=== PATIENT | female | born 1955 | race Caucasian/White ===

== ENCOUNTER 2020-04-17 17:19 | Inpatient (IN) | payer MEDICARE, OTHER ==
--- NOTE | 2020-04-17 17:34 | Consultation ---
History of Present Illness Consult date: 04/17/20 Reason for Consult: stroke alert Chief complaint: slurred speech right sided deficits History of present illness: [facility] Date of Service: 04/17/2020 17:28:33 Impression: Rule Out Acute Ischemic Stroke Comments/Sign-Out: 64 yo F with onset of right sided weakness paresthesia and dysarthria yesterday afternoon. It had not resolved today so she came in. Outside tPA window and no suspicion of LVO Mechanism of Stroke: Small Vessel Disease Metrics: Last Known Well: 04/16/2020 12:00:00 [facility] Notification Time: 04/17/2020 17:28:09 Arrival Time: 04/17/2020 17:19:00 Stamp Time: 04/17/2020 17:28:33 Time First Login Attempt: 04/17/2020 17:30:58 Video Start Time: 04/17/2020 17:32:45 Symptoms: right sided weakness paresthesia slurred speech NIHSS Start Assessment Time: 04/17/2020 17:35:45 Patient is not a candidate for tPA. Patient was not deemed candidate for tPA thrombolytics because of Last Well Known Above 4.5 Hours. Video End Time: 04/17/2020 17:41:36 CT head showed no acute hemorrhage or acute core infarct. Clinical Presentation is not Suggestive of Large Vessel Occlusive Disease ED Physician notified of diagnostic impression and management plan on 04/17/2020 17:41:44 Our recommendations are outlined below. Recommendations: Activate Stroke Protocol Admission/Order Set Stroke/Telemetry Floor Neuro Checks Bedside Swallow Eval DVT Prophylaxis IV Fluids, Normal Saline Head of Bed 30 Degrees Euglycemia and Avoid Hyperthermia (PRN Acetaminophen) Antiplatelet Therapy Recommended Initiate Aspirin 81 MG Daily Routine Consultation with Inhouse Neurology for Follow up Care Sign Out: Discussed with Emergency Department Provider History of Present Illness: Patient is a 64 year old Female. Patient was brought by private transportation with symptoms of right sided weakness paresthesia slurred speech who has right arm numbness since yesterday afternoon. Her speech is also slurred. It got worse today. Examination: 1A: Level of Consciousness - Alert; keenly responsive + 0 1B: Ask Month and Age - Both Questions Right + 0 1C: Blink Eyes & Squeeze Hands - Performs Both Tasks + 0 2: Test Horizontal Extraocular Movements - Normal + 0 3: Test Visual Danielle - No Visual Loss + 0 4: Test Facial Palsy (Use Grimace if Obtunded) - Normal symmetry + 0 5A: Test Left Arm Motor Drift - No Drift for 10 Seconds + 0 5B: Test Right Arm Motor Drift - Drift, but doesn't hit bed + 1 6A: Test Left Leg Motor Drift - No Drift for 5 Seconds + 0 6B: Test Right Leg Motor Drift - No Drift for 5 Seconds + 0 7: Test Limb Ataxia (FNF/Heel-Castillo) - No Ataxia + 0 8: Test Sensation - Mild-Moderate Loss: Less Sharp/More Dull + 1 9: Test Language/Aphasia - Normal; No aphasia + 0 10: Test Dysarthria - Mild-Moderate Dysarthria: Slurring but can be understood + 1 11: Test Extinction/Inattention - No abnormality + 0 NIHSS Score: 3 Patient/Family was informed the Neurology Consult would happen via TeleHealth consult by way of interactive audio and video telecommunications and consented to receiving care in this manner. Due to the immediate potential for life-threatening deterioration due to underlying acute neurologic illness, I spent 35 minutes providing critical care. This time includes time for face to face visit via telemedicine, review of medical records, imaging studies and discussion of findings with providers, the patient and/or family. Dr Dayron Hua [facility] Case [id number] Medications and Allergies Allergies Allergy/AdvReac Type Severity Reaction Status Date / Time No Known Allergies Allergy Verified 04/17/20 17:20 Physical Examination - Vital Signs Vital Signs: Vital Signs Temp Pulse Resp BP Pulse Ox 98 F 73 20 214/87 97 04/17/20 17:24 04/17/20 17:24 04/17/20 17:24 04/17/20 17:24 04/17/20 17:24
--- NOTE | 2020-04-17 17:45 | Emergency Department Report ---
HPI - General Chief Complaint: Neuro Symptoms/Deficit Time Seen by Provider: 04/17/20 17:42 - HPI HPI: 64-year-old female presents to the emergency department as a code stroke secondary to slurred speech and right shoulder numbness. The symptoms started yesterday with the slurred speech at first and then the right shoulder numbness later on. The patient thought that she would go to sleep and the symptoms would resolve but she woke up with them and then was encouraged by family to come to the emergency department. Patient also says that she would get dizzy with some mild blurry vision when going up and down the stairs. She has a history of hype rtension for which she takes losartan and does present with extremely elevated blood pressure. She did not take her losartan today. She denies any tobacco or illicit drug use. No recent travel or sick contacts at home. Her primary care physician is Dr. Brewer. ED Past Medical Hx - Past Medical History Hx Hypertension: Yes - Medications Home Medications: Home Medications Medication Instructions Recorded Confirmed Last Taken Type Losartan [Cozaar] 25 mg PO QHS 04/17/20 04/17/20 1 Day Ago History ~04/16/20 ED Review of Systems ROS: Stated complaint: SLURRED SPEECH/RT SHOULDER NUMB Other details as noted in HPI Comment: All other systems reviewed and negative Constitutional: denies: chills, fever Eyes: vision change (blurry vision). denies: eye pain ENT: denies: ear pain, throat pain Respiratory: denies: cough, shortness of breath Cardiovascular: denies: chest pain, palpitations Gastrointestinal: denies: abdominal pain, vomiting Genitourinary: denies: dysuria, discharge Musculoskeletal: denies: back pain, arthralgia Skin: denies: rash, lesions Neurological: numbness, other (dizziness, dysarthria). denies: headache Physical Exam - Physical Exam Vital Signs: Vital Signs 04/17/20 17:24 Temperature 98 F Pulse Rate 73 Respiratory 20 Rate Blood Pressure 214/87 [Left] O2 Sat by Pulse 97 Oximetry Physical Exam: GENERAL: The patient is well-developed well-nourished. HENT: Normocephalic. Atraumatic. Patient has moist mucous membranes. EYES: Extraocular motions are intact. Pupils equal reactive to light bilaterall y. No nystagmus. NECK: Supple. Trachea is midline. CHEST/LUNGS: Clear to auscultation. There is no respiratory distress noted. HEART/CARDIOVASCULAR: Regular. There is no tachycardia. There is no murmur. ABDOMEN: Abdomen is soft, nontender. Patient has normal bowel sounds. There is no abdominal distention. SKIN: Skin is warm and dry. NEURO: The patient is awake, alert, and oriented. The patient is cooperative. There is subjective decrease sensation to the right side of the face, right arm, and right leg when compared to the left. Patient has some dysarthria. No facial asymmetry. There is a slight right arm drift. MUSCULOSKELETAL: There is no tenderness or deformity. Capillary refill less than 2 seconds and radial pulse +2/4 to the affected right upper extremity. ED Course Vital Signs 04/17/20 17:24 Temperature 98 F Pulse Rate 73 Respiratory 20 Rate Blood Pressure 214/87 [Left] O2 Sat by Pulse 97 Oximetry - Consultations Consultation #1: 04/17/20 17:44 The patient was seen by the telemedicine neurologist, Dr. Hua, upon her arrival and while in CT scan. Her last known well time was sometimes yesterday and the symptoms have been progressing since then. Therefore she is not a TPA candidate. He has given her a low NIH stroke scale and feels this could be a small vessel CVA. He does not recommend CT angiography studies at this time but does recommend admission for MRI and further CVA work-up. ED Medical Decision Making - Lab Data Result diagrams: 04/17/20 17:44 04/17/20 17:44 - EKG Data -: EKG Interpreted by Tn EKG shows normal: sinus rhythm, axis, intervals, QRS complexes, ST-T waves Rate: bradycardia (53 bpm) - EKG Data When compared to previous EKG there are: previous EKG unavailable Interpretation: normal EKG (with mild bradycardia at 53 bpm) - Radiology Data Radiology results: report reviewed CT HEAD WITHOUT CONTRAST INDICATION / CLINICAL INFORMATION: neuro deficits <6hrs or sx present upon awakening. TECHNIQUE: All CT scans at this location are performed using CT dose reduction for ALARA by means of automated exposure control. COMPARISON: None available. FINDINGS: HEMORRHAGE: No evidence of intracranial hemorrhage or extra-axial fluid collection. EXTRA-AXIAL SPACES: Cortical sulci, sylvian fissures and basilar cisterns have an unremarkable appearance. VENTRICULAR SYSTEM: The ventricular system is of normal size and configuration. CEREBRAL PARENCHYMA: No areas of abnormal brain parenchymal attenuation are identified. There is no indication of recent infarction. MIDLINE SHIFT OR HERNIATION: There is no mass effect. CEREBELLUM / BRAINSTEM: There is an 8mm diameter area of decreased attenuation in the left cerebral peduncle (series 2 image 8). Further evaluation with magnetic resonance imaging to include MRI brain without and with contrast is suggested for further evaluation. Cerebellum has an unremarkable appearance. MIDLINE STRUCTURES:No abnormalities of the pituitary gland or pineal region are identified. INTRACRANIAL VESSELS:No abnormalities are identified on this noncontrast head CT. ORBITS: visualized portions of the orbits have an unremarkable appearance. SOFT TISSUES of HEAD: No significant abnormality. CALVARIUM: Evaluation of bone windows reveals no abnormalities. PARANASAL SINUSES / MASTOID AIR CELLS: Paranasal sinuses are free from significant inflammatory mucosal disease. Mastoid air cells are normally pneumatized. IMPRESSION: 1. There is an 8mm diameter area of decreased brain parenchymal attenuation in the left cerebral peduncle. This is of indeterminate etiology. Further evaluation with magnetic resonance imaging of the brain to be performed without and with contrast is suggested. 2. Otherwise negative head CT without contrast. - Medical Decision Making This patient presents to the emergency department with a complaint of some slurred speech and right-sided arm numbness starting yesterday. On examination the patient has some decrease sensation to the right face, arm and leg when compared to the left. She was seen by the telemedicine neurologist immediately upon arrival. CT scan of the head shows an 8 mm area of decreased brain parenchymal attenuation in the left cerebral peduncle of indeterminate etiology and MRI with and without contrast has been recommended. Neurology agrees that the patient is of a TPA candidate as her symptoms started yesterday and re commends admission to the hospital for further stroke work-up. EKG does not show any morphology of ST elevation ID or any significant dysrhythmia. Labs have been unremarkable including CBC, metabolic panel, troponin. The patient will be admitted to the hospital for further evaluation and treatment and was accepted for admission by the hospitalist, Dr. Purvis. Critical Care Time: Yes Critical care time in (mins) excluding proc time.: 35 Critical care attestation.: If time is entered above; I have spent that time in minutes in the direct care of this critically ill patient, excluding procedure time. Critical care time is spent on this patient in doing her initial evaluation, multiple re-evaluations, ordering and interpretation of labs and imaging, discussion with the telemedicine neurologist, discussion with the radiologist, discussion with the hospitalist, and discussions with the patient herself. Critical Care Time: 35 minutes ED Disposition Clinical Impression: Hypertensive urgency CVA (cerebral vascular accident) Qualifiers: CVA mechanism: unspecified Qualified Code(s): I63.9 - Cerebral infarction, unspecified Disposition: DC-09 OP ADMIT IP TO THIS HOSP Is pt being admited?: Yes Condition: Serious Time of Disposition: 18:23
[2020-04-17 17:54] LABS: Basophils % (Auto) 0.3 % (0.0-1.8); Eosinophils # (Auto) 0.1 K/mm3 (0.0-0.4); Eosinophils % (Auto) 1.5 % (0.0-4.3); Hematocrit 41.8 % (30.3-42.9); Hemoglobin 13.9 gm/dl (10.1-14.3); Lymphocytes # (Auto) 1.1 K/mm3 (1.2-5.4); Lymphocytes % (Auto) 21.5 % (13.4-35.0); Mean Corpuscular HGB Conc 33 % (30-34); Mean Corpuscular Volume 88 fl (79-97); Monocytes # (Auto) 0.2 K/mm3 (0.0-0.8); Monocytes % (Auto) 3.5 % (0.0-7.3); Platelet Count 252 K/mm3 (140-440); Red Blood Count 4.75 M/mm3 (3.65-5.03); Red Cell Distribution Width 13.7 % (13.2-15.2)
[2020-04-17 18:04] LABS: INR 0.88 (0.87-1.13)
[2020-04-17 18:05] LABS: Partial Thromboplastin Time 28.7 Sec. (24.2-36.6)
[2020-04-17 18:09] LABS: BUN/Creatinine Ratio 23; Blood Urea Nitrogen 16 mg/dL (7-17); Hemolysis Index 13
[2020-04-17] MEDS ORDERED: hydrALAZINE 20 MG/1 ML INJ IV ONE (18:22)
[2020-04-17] MEDS ORDERED: ASPIRIN 81 MG TAB CHEW PO ONE (18:23)
--- NOTE | 2020-04-17 22:42 | Event Note ---
Date: 04/17/20 See history and physical in the reports TIA Hypertension Observation status MRI
[2020-04-17] MEDS ORDERED: ONDANSETRON 4 MG/2 ML INJ IV PRN (22:43)
[2020-04-17] MEDS ORDERED: ACETAMINOPHEN 325 MG TAB PO PRN (22:43)
[2020-04-17] MEDS ORDERED: oxyCODONE /ACETAMINOPHEN 5-325MG TAB PO PRN (22:43)
[2020-04-17] MEDS: HEPARIN 5,000 UNIT/1 ML VIAL SUB-Q SCH (23:53)
[2020-04-17] MEDS: carvediloL 12.5 MG TAB PO SCH (23:53)
[2020-04-17] MEDS: hydrALAZINE 20 MG/1 ML INJ IV PRN (23:53)
[2020-04-18 04:31] LABS: Basophils % (Auto) 0.3 % (0.0-1.8); Eosinophils % (Auto) 0.4 % (0.0-4.3); Hematocrit 39.3 % (30.3-42.9); Hemoglobin 13.1 gm/dl (10.1-14.3); Lymphocytes % (Auto) 10.5 % (13.4-35.0); Mean Corpuscular HGB Conc 33 % (30-34); Mean Corpuscular Volume 87 fl (79-97); Monocytes # (Auto) 0.3 K/mm3 (0.0-0.8); Monocytes % (Auto) 2.7 % (0.0-7.3); Platelet Count 260 K/mm3 (140-440); Red Cell Distribution Width 13.3 % (13.2-15.2)
[2020-04-18 04:49] LABS: Albumin 3.9 g/dL (3.9-5); Calcium 9.1 mg/dL (8.4-10.2); Chol/HDL Ratio 2.8 %
[2020-04-18] MEDS: SODIUM CHLORIDE 0.9% 1000 ML 1,000 ML IV SCH (06:08)
--- NOTE | 2020-04-18 08:23 | History and Physical Report ---
History of Present Illness Date of examination: 04/17/20 Date of admission: 04/17/20 18:23 Chief complaint: Dysartria and RUE numbness History of present illness: 64-year-old female presents to the emergency department as a code stroke secondary to slurred speech and right shoulder numbness. The symptoms started yesterday with the slurred speech at first and then the right shoulder numbness later on. The patient thought that she would go to sleep and the symptoms would resolve but she woke up with them and then was encouraged by family to come to the emergency department. Patient also says that she would get dizzy with some mild blurry vision when going up and down the stairs. She has a history of hypertension for which she takes losartan and does present with extremely elevated blood pressure. She did not take her losartan today. She denies any tobacco or illicit drug use. No recent travel or sick contacts at home. Her primary care physician is Dr. Brewer. Dysartria improved while in ED Past History Past Medical History: hypertension, hyperlipidemia Past Surgical History: No surgical history Social history: lives with family, full code Family history: hypertension Medications and Allergies Allergies Allergy/AdvReac Type Severity Reaction Status Date / Time No Known Allergies Allergy Verified 04/17/20 17:20 Home Medications Medication Instructions Recorded Confirmed Last Taken Type Losartan [Cozaar] 25 mg PO QHS 04/17/20 04/18/20 1 Day Ago History ~04/16/20 25 Active Meds: Active Medications Acetaminophen (Tylenol) 650 mg PO Q4H PRN PRN Reason: Pain MILD(1-3)/Fever >100.5/[place] Aspirin (Aspirin) 325 mg PO QDAY [facility] Carvedilol (Coreg) 12.5 mg PO BID [facility] Last Admin: 04/17/20 23:53 Dose: 12.5 mg Documented by: Famotidine (Pepcid) 20 mg IV BID [facility] Heparin Sodium (Porcine) (Heparin) 5,000 unit SUB-Q Q12HR [facility] Last Admin: 04/17/20 23:53 Dose: 5,000 unit Documented by: Hydralazine HCl (Apresoline) 10 mg IV Q3H PRN PRN Reason: Blood Pressure Last Admin: 04/17/20 23:53 Dose: 10 mg Documented by: Hydromorphone HCl (Dilaudid) 0.5 mg IV Q3H PRN PRN Reason: Pain , Severe (7-10) Sodium Chloride (Nacl 0.9% 1000 Ml) 1,000 mls @ 75 mls/hr IV DIRECT [facility] Last Admin: 04/18/20 06:08 Dose: 75 mls/hr Documented by: Losartan Potassium (Cozaar) 100 mg PO QHS [facility] Ondansetron HCl (Zofran) 4 mg IV Q8H PRN PRN Reason: Nausea And Vomiting Oxycodone/Acetaminophen (Percocet 5/325) 1 tab PO Q6H PRN PRN Reason: Pain, Moderate (4-6) Pravastatin Sodium (Pravachol) 40 mg PO QHS [facility] Sodium Chloride (Sodium Chloride Flush Syringe 10 Ml) 10 ml IV BID [facility] Sodium Chloride (Sodium Chloride Flush Syringe 10 Ml) 10 ml IV PRN PRN PRN Reason: LINE FLUSH Review of Systems All systems: negative Neurological: numbness (RUE), change in speech Exam - Constitutional Vitals: Temp Pulse Resp BP Pulse Ox 98.0 F 67 18 109/46 94 04/18/20 04:22 04/18/20 04:22 04/18/20 04:22 04/18/20 04:22 04/18/20 04:22 General appearance: Present: no acute distress, well-nourished - EENT Eyes: Present: PERRL ENT: hearing intact, clear oral mucosa - Neck Neck: Present: supple, normal ROM - Respiratory Respiratory effort: normal Respiratory: bilateral: CTA - Cardiovascular Heart rate: 78 Rhythm: regular Heart Sounds: Present: S1 & S2. Absent: rub, click - Extremities Extremities: pulses symmetrical, No edema Peripheral Pulses: within normal limits - Abdominal General gastrointestinal: Present: soft, non-tender, non-distended, normal bowel sounds Female genitourinary: Present: normal - Integumentary Integumentary: Present: clear, warm, dry - Musculoskeletal Musculoskeletal: gait normal, strength equal bilaterally - Psychiatric Psychiatric: appropriate mood/affect, intact judgment & insight - Neurologic Neurologic: CNII-XII intact, moves all extremities, other (Dysarthria) - Allied Health Allied health notes reviewed: nursing, case management HEART Score - HEART Score Troponin: Troponin T < 0.010 ng/mL (0.00-0.029) 04/17/20 17:44 Results - Labs CBC & Chem 7: 04/18/20 04:06 04/18/20 04:06 Labs: Laboratory Last Values WBC 9.2 K/mm3 (4.5-11.0) 04/18/20 04:06 RBC 4.50 M/mm3 (3.65-5.03) 04/18/20 04:06 Hgb 13.1 gm/dl (10.1-14.3) 04/18/20 04:06 Hct 39.3 % (30.3-42.9) 04/18/20 04:06 MCV 87 fl (79-97) 04/18/20 04:06 MCH 29 pg (28-32) 04/18/20 04:06 MCHC 33 % (30-34) 04/18/20 04:06 RDW 13.3 % (13.2-15.2) 04/18/20 04:06 Plt Count 260 K/mm3 (140-440) 04/18/20 04:06 Lymph % (Auto) 10.5 % (13.4-35.0) L 04/18/20 04:06 [place] % (Auto) 2.7 % (0.0-7.3) 04/18/20 04:06 Eos % (Auto) 0.4 % (0.0-4.3) 04/18/20 04:06 Baso % (Auto) 0.3 % (0.0-1.8) 04/18/20 04:06 Lymph # 1.0 K/mm3 (1.2-5.4) L 04/18/20 04:06 [place] # 0.3 K/mm3 (0.0-0.8) 04/18/20 04:06 Eos # 0.0 K/mm3 (0.0-0.4) 04/18/20 04:06 Baso # 0.0 K/mm3 (0.0-0.1) 04/18/20 04:06 Seg Neutrophils % 86.1 % (40.0-70.0) H 04/18/20 04:06 Seg Neutrophils # 7.9 K/mm3 (1.8-7.7) H 04/18/20 04:06 PT 11.8 Sec. (12.2-14.9) L 04/17/20 17:44 INR 0.88 (0.87-1.13) 04/17/20 17:44 APTT 28.7 Sec. (24.2-36.6) 04/17/20 17:44 Thrombin Time 16.8 Sec. (15.1-19.6) 04/17/20 17:44 Sodium 143 mmol/L (137-145) 04/18/20 04:06 Potassium 3.9 mmol/L (3.6-5.0) 04/18/20 04:06 Chloride 104.8 mmol/L (98-107) 04/18/20 04:06 Carbon Dioxide 25 mmol/L (22-30) 04/18/20 04:06 Anion Gap 17 mmol/L 04/18/20 04:06 BUN 20 mg/dL (7-17) H 04/18/20 04:06 Creatinine 1.0 mg/dL (0.7-1.2) 04/18/20 04:06 Estimated GFR 56 ml/min 04/18/20 04:06 BUN/Creatinine Ratio 20 % 04/18/20 04:06 Glucose 157 mg/dL (65-100) H 04/18/20 04:06 POC Glucose 78 (70-105) 04/17/20 23:25 Hemoglobin A1c 5.5 % (4-6) 04/17/20 17:44 Calcium 9.1 mg/dL (8.4-10.2) 04/18/20 04:06 Total Bilirubin 0.40 mg/dL (0.1-1.2) 04/18/20 04:06 AST 17 units/L (5-40) 04/18/20 04:06 ALT 22 units/L (7-56) 04/18/20 04:06 Alkaline Phosphatase 62 units/L (35-129) 04/18/20 04:06 Troponin T < 0.010 ng/mL (0.00-0.029) 04/17/20 17:44 Total Protein 6.7 g/dL (6.3-8.2) 04/18/20 04:06 Albumin 3.9 g/dL (3.9-5) 04/18/20 04:06 Albumin/Globulin Ratio 1.4 % 04/18/20 04:06 Triglycerides 128 mg/dL (2-149) 04/18/20 04:06 Cholesterol 174 mg/dL (50-199) 04/18/20 04:06 LDL Cholesterol Direct 107 mg/dL (50-130) 04/18/20 04:06 HDL Cholesterol 62 mg/dL (40-59) H 04/18/20 04:06 Cholesterol/HDL Ratio 2.80 % 04/18/20 04:06 - Imaging and Cardiology EKG: report reviewed Chest x-ray: report reviewed CT Scan - head: report reviewed Schaeffer/IV: Voiding Method Toilet IV Catheter Type [Left Forearm INT / Saline Lock ] IV Catheter Type [Right INT / Saline Lock Forearm] Assessment and Plan Advance Directives: Yes (FC) VTE prophylaxis?: Chemical Plan of care discussed with patient/family: Yes - Patient Problems (1) TIA (transient ischemic attack) Current Visit: Yes Status: Acute Plan to address problem: TIA w/u MRI/CDS/Echo (2) Hypertensive urgency Current Visit: Yes Status: Acute Plan to address problem: IV HYDRALAZINE PRN Q#HCont antihypertensives Meds adjusted (3) DVT prophylaxis Current Visit: Yes Status: Acute Plan to address problem: on lovenox
[2020-04-18] MEDS: HYDROmorphone 1 MG/1 ML INJ IV PRN ×3 (08:40→16:06)
[2020-04-18] MEDS ORDERED: ASPIRIN 325 MG TAB PO SCH (10:00)
[2020-04-18] MEDS ORDERED: FAMOTIDINE 20 MG/2 ML INJ IV SCH (10:00)
[2020-04-18] MEDS: FAMOTIDINE 20 MG TAB PO SCH ×2 (13:02→22:31)
[2020-04-18] MEDS: carvediloL 12.5 MG TAB PO SCH ×2 (13:02→22:31)
[2020-04-18] MEDS: HEPARIN 5,000 UNIT/1 ML VIAL SUB-Q SCH ×2 (13:03→22:32)
[2020-04-18] MEDS: hydrALAZINE 20 MG/1 ML INJ IV PRN (16:05)
--- NOTE | 2020-04-18 18:01 | Consultation ---
History of Present Illness Consult date: 04/18/20 Reason for Consult: Dysarthria, right arm weakness/numbness Chief complaint: Dysarthria, right arm weakness/numbness History of present illness: Patient is a 64 y/o woman w/ a h/o HTN. She presented yesterday with symptoms that began on 04/16/20 at around noon, described as dysarthria and RUE weakness and numbness. The patient went to sleep that evening, and woke up yesterday morning with persistent symptoms, and therefore decided to come to [facility] for further evaluation. Past History Past Medical History: hypertension Past Surgical History: No surgical history Social history: lives with family, full code Family history: hypertension Medications and Allergies Allergies Allergy/AdvReac Type Severity Reaction Status Date / Time No Known Allergies Allergy Verified 04/17/20 17:20 Home Medications Medication Instructions Recorded Confirmed Last Taken Type Losartan [Cozaar] 25 mg PO QHS 04/17/20 04/18/20 1 Day Ago History ~04/16/20 25 Active Meds: Active Medications Acetaminophen (Tylenol) 650 mg PO Q4H PRN PRN Reason: Pain MILD(1-3)/Fever >100.5/[place] Aspirin (Aspirin) 325 mg PO QDAY [facility] Last Admin: 04/18/20 13:02 Dose: 325 mg Documented by: Atorvastatin Calcium (Lipitor) 40 mg PO QHS [facility] Carvedilol (Coreg) 12.5 mg PO BID [facility] Last Admin: 04/18/20 13:02 Dose: 12.5 mg Documented by: Famotidine (Pepcid) 20 mg PO BID [facility] Last Admin: 04/18/20 13:02 Dose: 20 mg Documented by: Heparin Sodium (Porcine) (Heparin) 5,000 unit SUB-Q Q12HR [facility] Last Admin: 04/18/20 13:03 Dose: 5,000 unit Documented by: Hydralazine HCl (Apresoline) 10 mg IV Q3H PRN PRN Reason: Blood Pressure Last Admin: 04/18/20 16:05 Dose: 10 mg Documented by: Hydromorphone HCl (Dilaudid) 0.5 mg IV Q3H PRN PRN Reason: Pain , Severe (7-10) Last Admin: 04/18/20 16:06 Dose: 0.5 mg Documented by: Sodium Chloride (Nacl 0.9% 1000 Ml) 1,000 mls @ 75 mls/hr IV DIRECT [facility] Last Admin: 04/18/20 06:08 Dose: 75 mls/hr Documented by: Losartan Potassium (Cozaar) 100 mg PO QHS [facility] Ondansetron HCl (Zofran) 4 mg IV Q8H PRN PRN Reason: Nausea And Vomiting Oxycodone/Acetaminophen (Percocet 5/325) 1 tab PO Q6H PRN PRN Reason: Pain, Moderate (4-6) Sodium Chloride (Sodium Chloride Flush Syringe 10 Ml) 10 ml IV BID [facility] Last Admin: 04/18/20 13:02 Dose: 10 ml Documented by: Sodium Chloride (Sodium Chloride Flush Syringe 10 Ml) 10 ml IV PRN PRN PRN Reason: LINE FLUSH Review of Systems All systems: negative Neurological: weakness, numbness, change in speech Physical Examination - Vital Signs Vital Signs: Vital Signs Temp Pulse Resp BP Pulse Ox 98 F 73 20 214/87 97 04/17/20 17:24 04/17/20 17:24 04/17/20 17:24 04/17/20 17:24 04/17/20 17:24 - Physical Exam Narrative exam: Patient is alert, awake, oriented x4, follows complex commands. No dysarthria or aphasia noted. PERRL, EOMI, VFF, tongue midline, bilaterally intact to LT, no facial weakness noted. 5/5 strength in LUE/LLE, 3/5 in RUE/RLE. Decreased on RUE/RLE to light touch. Bilaterally intact to FTN and HTS. - Constitutional General appearance: comfortable - EENT EENT: Present: ATNC - Level of Consciousness 1a. Level of Consciousness: alert/keenly responsive - LOC Questions 1b. LOC Questions: answers both correctly - LOC Command 1c. LOC Commands: performs tasks correctly - Best Gaze 2. Best Gaze: normal - Visual 3. Visual: no visual loss - Facial Palsy 4. Facial Palsy: normal symmetrical movement - Motor Arm 5a. Motor Arm Left: no drift 5b. Motor Arm Right: drift - Motor Leg 6a. Motor Leg Left: no drift 6b. Motor Leg Right: drift - Limb Ataxia 7. Limb Ataxia: absent - Sensory 8. Sensory: mild/moderate sensory loss - Best Language 9. Best Language: no aphasia - Dysarthria 10. Dysarthria: normal - Extinction and Inattention 11. Extinction/Inattention: no abnormality - Scoring Total Score: 3 Stroke Severity: Minor Stroke Results - Laboratory Findings CBC and BMP: 04/18/20 04:06 04/18/20 04:06 Abnormal Lab Findings: Abnormal Labs 04/17/20 04/17/20 04/17/20 17:44 17:44 17:44 Lymph % (Auto) Lymph # 1.1 L Seg Neutrophils % 73.2 H Seg Neutrophils # PT 11.8 L Potassium 3.5 L BUN Glucose 148 H HDL Cholesterol 04/18/20 04/18/20 04:06 04:06 Lymph % (Auto) 10.5 L Lymph # 1.0 L Seg Neutrophils % 86.1 H Seg Neutrophils # 7.9 H PT Potassium BUN 20 H Glucose 157 H HDL Cholesterol 62 H Assessment and Plan Patient is a 64 y/o woman w/ a h/o HTN, who p/w dysarthria and RUE weakness/numbness. According to the patient's clinical findings,, she has had a stroke, as is evidenced on MRI brain. Etiology of stroke is uncertain, and will be further investigated. Plan: 1. Stroke: - MRI brain: Acute infarct noted in left cerebral peduncle. - MRA head/neck: multiple areas of stenosis noted on MRA head. Rt. dominant vertebral artery noted, with Lt. verterbral artery ending in PICA. - CT head: area of attenuation noted in left cerebellum/midbrain. - Echo: EF 60-65%, LA normal size, bubble study negative. -Recommend dual antiplatelet therapy with aspirin 81 mg daily and Plavix 75 mg daily for 30 days, after which Plavix can be stopped. Discussed risks and bene fits of dual antiplatelet therapy with patient, and patient agreed to take this. - Cont. statin. LDL goal <70. Current LDL 107. - Telemetry monitoring while in house - PT/OT/ST - DVT Ppx: Recommend lovenox - Given cryptogenic etiology of stroke, recommend long-term cardiac monitoring with 30-day MCOT and ILR by cardiology, to be done as outpatient. 2. Hypertension: - Recommend BP goal of <220/120 to allow for permissive HTN for first 24-48 hours. Can target normotension after that. - Will sign off, as I am not covering neurology service over the weekend. Please consult neurologist covering the service over the weekend for further neurologic monitoring and management. Thank you for allowing me to take part in the care of this patient. Benito Aldridge MD Neurology This clinical encounter was provided via live telemedicine platform. Consultative service was provided for neurology to support local providers. The Acute Teleneurology team should be contacted with any neurologic worsening or clinical changes, new test results, or new patient history that is reported to or discovered by the local team following completion of the teleneurology consultation, specifically that which has the potential to impact the consultative recommendations. Patient/Family was informed the Neurology Consult would happen via TeleHealth consult by way of interactive audio and video telecommunications and consented to receiving care in this manner. Due to the potential for life-threatening deterioration due to underlying neurologic illness, and limited resources available for patient care, t elemedicine was used as means of patient care. Telemedicine consultation is limited in the extent of physical exam that can be virtually provided. Time spent evaluating patient includes time for face to face visit via telemedicine, review of medical records, imaging studies and discussion of findings with providers, the patient and/or family.
[2020-04-18] MEDS ORDERED: PRAVASTATIN 40 MG TAB PO SCH (22:00)
[2020-04-18] MEDS ORDERED: LOSARTAN 25 MG TAB PO SCH (22:00)
[2020-04-18] MEDS: LOSARTAN 50 MG TAB PO SCH (22:32)
[2020-04-19] MEDS: SODIUM CHLORIDE 0.9% 1000 ML 1,000 ML IV SCH (01:55)
[2020-04-19] MEDS: hydrALAZINE 20 MG/1 ML INJ IV PRN (08:02)
[2020-04-19] MEDS: CLOPIDOGREL 75 MG TAB PO SCH (10:25)
[2020-04-19] MEDS: carvediloL 12.5 MG TAB PO SCH ×2 (10:25→21:37)
[2020-04-19] MEDS: ASPIRIN EC 81 MG TAB PO SCH (10:25)
[2020-04-19] MEDS: FAMOTIDINE 20 MG TAB PO SCH ×2 (10:25→21:36)
[2020-04-19] MEDS: HEPARIN 5,000 UNIT/1 ML VIAL SUB-Q SCH ×2 (10:29→21:39)
[2020-04-19] MEDS: LOSARTAN 50 MG TAB PO SCH (21:38)
--- NOTE | 2020-04-19 22:33 | Progress Note ---
Assessment and Plan - Patient Problems (1) CVA (cerebral vascular accident) Current Visit: Yes Status: Acute Qualifiers: CVA mechanism: unspecified Qualified Code(s): I63.9 - Cerebral infarction, unspecified Plan to address problem: Patient has acute infarct in the left cerebral peduncle which is consistent with the symptoms of dysarthria and right upper extremity weakness. Patient is able to walk. Patient unable to do fine movements with the right upper extremity. Plavix 75 mg p.o. daily PT and OT. Aspirin 325 mg p.o. daily (2) Hypertensive urgency Current Visit: Yes Status: Acute Plan to address problem: IV HYDRALAZINE PRN Q#HCont antihypertensives Meds adjusted (3) DVT prophylaxis Current Visit: Yes Status: Acute Plan to address problem: on lovenox Subjective Date of service: 04/18/20 Principal diagnosis: Dysarthria and right upper extremity weakness Interval history: 64-year-old female presents to the emergency department as a code stroke secondary to slurred speech and right shoulder numbness. The symptoms started yesterday with the slurred speech at first and then the right shoulder numbness later on. The patient thought that she would go to sleep and the symptoms would resolve but she woke up with them and then was encouraged by family to come to the emergency department. Patient also says that she would get dizzy with some mild blurry vision when going up and down the stairs. She has a history of hypertension for which she takes losartan and does present with extremely e levated blood pressure. She did not take her losartan today. She denies any tobacco or illicit drug use. No recent travel or sick contacts at home. Her primary care physician is Dr. Brewer. Dysartria improved while in ED Slight dysarthria present slight weakness present in the right upper extremity Able to walk normally Objective - Constitutional Vitals: Vital Signs - 12hr 04/19/20 04/19/20 04/19/20 11:57 16:33 20:49 Temperature 98.3 F 98.2 F 97.9 F Pulse Rate 66 61 Respiratory 18 18 20 Rate Blood Pressure 141/61 180/65 172/64 O2 Sat by Pulse 88 98 Oximetry 04/19/20 21:37 Temperature Pulse Rate 61 Respiratory Rate Blood Pressure 172/64 O2 Sat by Pulse Oximetry General appearance: Present: no acute distress, well-nourished - EENT Eyes: PERRL, EOM intact ENT: hearing intact, clear oral mucosa Ears: bilateral: normal - Neck Neck: supple, normal ROM - Respiratory Respiratory effort: normal Respiratory: bilateral: CTA - Breasts Breasts: normal - Cardiovascular Heart rate: 78 Rhythm: regular Heart Sounds: Present: S1 & S2. Absent: gallop, rub Extremities: pulses intact, No edema, normal color, Full ROM - Gastrointestinal General gastrointestinal: Present: soft, non-tender, non-distended, normal bowel sounds - Genitourinary Female genitourinary: normal - Integumentary Integumentary: clear, warm, dry - Musculoskeletal Musculoskeletal: right sided weakness (Right upper extremity weakness 4/5 power.), other - Neurologic Neurologic: CNII-XII intact, focal deficits (Right upper extremity weakness for vitamin D--4/5 power in right upper extremity), moves all extremities, other (Dysarthria present but minimal) - Psychiatric Psychiatric: memory intact, appropriate mood/affect, intact judgment & insight - Labs CBC & Chem 7: 04/18/20 04:06 04/18/20 04:06 Labs: MRI head IMPRESSION: 1. There is a 1 cm acute infarct within the left cerebral peduncle. HEART Score - HEART Score Troponin: Troponin T < 0.010 ng/mL (0.00-0.029) 04/17/20 17:44
--- NOTE | 2020-04-19 22:40 | Progress Note ---
Assessment and Plan - Patient Problems (1) CVA (cerebral vascular accident) Current Visit: Yes Status: Acute Qualifiers: CVA mechanism: unspecified Qualified Code(s): I63.9 - Cerebral infarction, unspecified Plan to address problem: Patient has acute infarct in the left cerebral peduncle which is consistent with the symptoms of dysarthria and right upper extremity weakness and RLE mild weak ness Patient is able to walk. Patient unable to do fine movements with the right upper extremity. Plavix 75 mg p.o. daily PT and OT. Aspirin 81 mg p.o. daily (2) Hypertensive urgency Current Visit: Yes Status: Acute Plan to address problem: IV HYDRALAZINE PRN Q#Cont antihypertensives Meds adjusted Started on Hydralazine 25 mg every 8 hours and coreg 12.5 mg every 12 hours Losartan discontinued because of side effects (3) DVT prophylaxis Current Visit: Yes Status: Acute Plan to address problem: on lovenox Subjective Date of service: 04/19/20 Principal diagnosis: Dysarthria and right upper extremity weakness Interval history: 64-year-old female presents to the emergency department as a code stroke secondary to slurred speech and right shoulder numbness. The symptoms started yesterday with the slurred speech at first and then the right shoulder numbness later on. The patient thought that she would go to sleep and the symptoms would resolve but she woke up with them and then was encouraged by family to come to the emergency department. Patient also says that she would get dizzy with some mild blurry vision when going up and down the stairs. She has a history of hypertension for which she takes losartan and does present with extremely elevated blood pressure. She did not take her losartan today. She denies any tobacco or illicit drug use. No recent travel or sick contacts at home. Her [place] [facility] care physician is Dr. Brewer. Dysartria improved while in ED Slight dysarthria present slight weakness present in the right upper extremity Able to walk normally Objective - Exam Narrative Exam: Day#3 Still has dysarthria and weakness RUE and slight weakness in Rle Good improvement in last 48 hours - Constitutional Vitals: Vital Signs - 12hr 04/19/20 04/19/20 04/19/20 11:57 16:33 20:49 Temperature 98.3 F 98.2 F 97.9 F Pulse Rate 66 61 Respiratory 18 18 20 Rate Blood Pressure 141/61 180/65 172/64 O2 Sat by Pulse 88 98 Oximetry 04/19/20 21:37 Temperature Pulse Rate 61 Respiratory Rate Blood Pressure 172/64 O2 Sat by Pulse Oximetry General appearance: Present: no acute distress, well-nourished - EENT Eyes: PERRL, EOM intact ENT: hearing intact, clear oral mucosa Ears: bilateral: normal - Neck Neck: supple, normal ROM - Respiratory Respiratory effort: normal Respiratory: bilateral: CTA - Breasts Breasts: normal - Cardiovascular Rhythm: regular Heart Sounds: Present: S1 & S2. Absent: gallop, rub Extremities: pulses intact, No edema, normal color, Full ROM - Gastrointestinal General gastrointestinal: Present: soft, non-tender, non-distended, normal bowel sounds - Genitourinary Female genitourinary: normal - Integumentary Integumentary: clear, warm, dry - Musculoskeletal Musculoskeletal: 1, strength equal bilaterally - Neurologic Neurologic: moves all extremities - Psychiatric Psychiatric: memory intact, appropriate mood/affect, intact judgment & insight - Labs CBC & Chem 7: 04/18/20 04:06 04/18/20 04:06 HEART Score - HEART Score Troponin: Troponin T < 0.010 ng/mL (0.00-0.029) 04/17/20 17:44
[2020-04-20] MEDS: hydrALAZINE 25 MG TAB PO SCH ×3 (00:40→14:07)
[2020-04-20] MEDS: carvediloL 12.5 MG TAB PO SCH (10:09)
[2020-04-20] MEDS: ASPIRIN EC 81 MG TAB PO SCH (10:09)
[2020-04-20] MEDS: HEPARIN 5,000 UNIT/1 ML VIAL SUB-Q SCH (10:09)
[2020-04-20] MEDS: CLOPIDOGREL 75 MG TAB PO SCH (10:09)
[2020-04-20] MEDS: FAMOTIDINE 20 MG TAB PO SCH (10:09)
[2020-04-20 17:17] VITALS: BP 159/58
--- NOTE | 2020-04-20 17:24 | Discharge Summary ---
Providers - Providers Date of Admission: 04/18/20 16:19 Date of discharge: 04/20/20 Attending physician: NATASHA TALLEY 04/17/20 22:43 Consult to Physician [CONS] Routine Comment: Consulting Provider: MANUELITO DIAZ Physician Instructions: Reason For Exam: tia 04/17/20 22:48 Occupational Therapy Evaluate and Treat [CONS] Routine Comment: Reason For Exam: Neuro deficits Physical Therapy Evaluation and Treat [CONS] Routine Comment: Reason For Exam: Neuro deficits 04/18/20 12:48 Speech Therapy Evaluation and Treat [CONS] Routine Reason For Exam: stroke with dysarthria Primary care physician: [employer] Hospitalization Condition: Serious Pertinent studies: MRI brain IMPRESSION: 1. There is a 1 cm acute infarct within the left cerebral peduncle. MRA neck IMPRESSION: No significant stenosis appreciated on this unenhanced MRA of the neck. MRA head DISTAL BRANCHES: Distal branches of the anterior, middle, and posterior cerebral arteries are fairly symmetric in appearance and number. Focal area of moderate narrowing is suggested in the mid to distal M1 segment of the right middle cerebral artery. Focal areas of narrowing seen in the MCA trifurcation regions bilaterally as well. Long segment of moderate to high-grade narrowing seen in the proximal P2 segment of the right posterior cerebral artery. Other areas of mild narrowing may be present more distally in both posterior cerebral arteries. Areas of mild narrowing seen in the A1 segment on the left. ANEURYSM: None identified. IMPRESSION: Focal areas of narrowing identified throughout, as described above in detail. Echocardiogram Ejection fraction 60 to 65% Mild concentric left ventricular hypertrophy is observed There is trace mild mitral regurgitation A patent foramina ovale is not demonstrated by agitated saline contrast carotid duplex study Right internal carotid artery less than 50% diameter stenosis Left internal carotid artery less than 50% diameter stenosis Hospital course: 64-year-old female presents to the emergency department as a code stroke secondary to slurred speech and right shoulder numbness. The symptoms started yesterday with the slurred speech at first and then the right shoulder numbness later on. The patient thought that she would go to sleep and the symptoms would resolve but she woke up with them and then was encouraged by family to come to the emergency department. Patient also says that she would get dizzy with some mild blurry vision when going up and down the stairs. She has a history of hypertension for which she takes losartan and does present with extremely elevated blood pressure. She did not take her losartan today. She denies any tobacco or illicit drug use. No recent travel or sick contacts at home. Her primary care physician is Dr. Demarco. Dysartria improved while in ED (1) CVA (cerebral vascular accident) Current Visit: Yes Status: Acute Qualifiers: CVA mechanism: unspecified Qualified Code(s): I63.9 - Cerebral infarction, unspecified Plan to address problem: Patient has acute infarct in the left cerebral peduncle which is consistent with the symptoms of dysarthria and right upper extremity weakness and RLE mild weakness Patient is able to walk. Patient unable to do fine movements with the right upper extremity. Plavix 75 mg p.o. daily PT and OT. Aspirin 81 mg p.o. daily Patient to follow-up with physical therapy in the hospital as outpatient. (2) Hypertensive urgency Current Visit: Yes Status: Acute Plan to address problem: IV HYDRALAZINE PRN Q#Cont antihypertensives Meds adjusted Started on Hydralazine 25 mg every 8 hours and coreg 12.5 mg every 12 hours Losartan discontinued because of side effects Disposition: DC-01 TO HOME OR SELFCARE - Discharge Diagnoses (1) CVA (cerebral vascular accident) Status: Acute Qualifiers: CVA mechanism: unspecified Qualified Code(s): I63.9 - Cerebral infarction, unspecified (2) Hypertensive urgency Status: Acute Core Measure Documentation - Palliative Care Palliative Care/ Comfort Measures: Not Applicable - Core Measures Any of the following diagnoses?: none Exam - Physical Exam Narrative exam: Day#3 Still has dysarthria and weakness RUE and slight weakness in Rle Good improvement in last 48 hours - Constitutional Vitals: Temp Pulse Resp BP Pulse Ox 98.3 F 71 18 159/58 93 04/20/20 16:40 04/20/20 11:44 04/20/20 16:40 04/20/20 16:40 04/20/20 05:25 General appearance: Present: no acute distress, well-nourished - EENT Eyes: Present: PERRL ENT: hearing intact, clear oral mucosa - Neck Neck: Present: supple, normal ROM - Respiratory Respiratory effort: normal Respiratory: bilateral: CTA - Cardiovascular Heart Sounds: Present: S1 & S2. Absent: rub, click - Extremities Extremities: pulses symmetrical, No edema Peripheral Pulses: within normal limits - Abdominal General gastrointestinal: Present: soft, non-tender, non-distended, normal bowel sounds Female genitourinary: Present: normal - Integumentary Integumentary: Present: clear, warm, dry - Musculoskeletal Musculoskeletal: right sided weakness, other - Psychiatric Psychiatric: appropriate mood/affect, intact judgment & insight - Neurologic Neurologic: CNII-XII intact, focal deficits (Right upper extremity weakness and right lower extremity weakness. Dysarthria present.), moves all extremities Plan Activity: no restrictions, no driving until cleared by PCP Weight Bearing Status: Weight Bear as Tolerated Diet: low cholesterol, low salt Special Instructions: physical therapy (Physical therapy in [facility] as outpatient) Follow up with: PRIMARY CAREMD [Primary Care Provider] - 3-5 Days NGUYEN DEMARCO MD [Staff Physician] - 7 Days JOHN MANCILLA MD [Staff Physician] - 7 Days Forms: Discharge Signature Page
== END 2020-04-20 18:30 | disposition home or self-care (01) | DRG 66 ==
LOC: ED 17:19 → INTOOBSV 18:23 → 4A 18:23 → OBSVTOIN 04-18 16:19
PROVIDERS: ADMIT Internal Medicine; ATTEND Internal Medicine
DX: I63.9 Cerebral infarction, unspecified (principal); I16.0 Hypertensive urgency; I10 Essential (primary) hypertension; E78.5 Hyperlipidemia, unspecified; G83.23 Monoplegia of upper limb affecting right nondominant side; Z82.49 Family history of ischemic heart disease and other diseases of the circulatory system
CPT/HCPCS: 36415; 70450; 70544; 70547; 70551; 80048; 80053; 80061; 82962; 83036; 84484; 85025; 85610; 85670; 85730; 93005; 93306; 93880; 94760; G0378; A9270-GY; J0360; J1170; J1644; J7030